=== PATIENT | male | born 1990 | race American Indian/Alaskan Native ===

== ENCOUNTER 2017-01-31 06:47 | Day surgery (SDC) | payer MEDICAID ==
[2017-01-31 07:24] LABS: INR 1.06 (0.93-1.08); PARTIAL THROMBOPLASTIN TIME 29.1 Seconds (23.7-30.8); PROTHROMBIN TIME 11.4 Seconds (9.9-11.8)
[2017-01-31 07:44] VITALS: BMI 30.3
[2017-01-31 07:51] VITALS: RESP 18
[2017-01-31] MEDS ORDERED: Bacitracin Ointment 30 GM TUBE ONE (08:42)
[2017-01-31] MEDS ORDERED: Absorbable Gelatin Sponge Size 100 ONE (08:42)
[2017-01-31] MEDS ORDERED: Bupivacaine 0.5% Inj(30mL) ONE (08:42)
[2017-01-31] MEDS ORDERED: Propofol 10 mg/ml Inj (20 ML) ONE (08:44)
[2017-01-31] MEDS ORDERED: Midazolam 2 MG/2 ML VIAL ONE (08:44)
[2017-01-31] MEDS ORDERED: Rocuronium 10 mg/ml (5 ml) ONE (08:48)
[2017-01-31] MEDS ORDERED: metroNIDAZOLE IV 500 mg/100 ml 500 MG/100 ML BAG ONE (09:14)
[2017-01-31] MEDS ORDERED: Neostigmine Methylsulfate 3mg/3ml Syringe IV ONE (09:32)
[2017-01-31] MEDS ORDERED: Lactated Ringer's 1,000 ML IV SCH (10:26)
[2017-01-31] MEDS ORDERED: HYDROmorphone 0.5 mg/0.5 ml ISec IVP PRN (10:26)
--- NOTE | 2017-01-31 10:28 | PCM.SURG1 ---
Surgeon's Initial Post Op Note - Surgeon's Notes Surgeon: Dr. Duran Counseling Services Director: Dr. Bess Type of Anesthesia: General Endo, Local Pre-Operative Diagnosis: anal fissure Operative Findings: see op report Post-Operative Diagnosis: anal fissure x2, anal lesion Operation Performed: exam under anesthesia w/ posterior and anterior anal fissurectomy w/ excision of posterior anal lesion and sphincterotomy Specimen/Specimens Removed: anterior and posterior anal fissure/tissue Estimated Blood Loss: EBL {In ML}: 25 Blood Products Given: N/A Drains Used: No Drains Post-Op Condition: Good Date of Surgery/Procedure: 01/31/17 Time of Surgery/Procedure: 10:28
[2017-01-31] MEDS ORDERED: HYDROmorphone 0.5 mg/0.5 ml ISec ONE (10:50)
[2017-01-31] MEDS ORDERED: HYDROmorphone 0.5 mg/0.5 ml ISec IVP ONE (10:51)
[2017-01-31 11:57] VITALS: TEMP 98.1; O2SAT 99
[2017-01-31 12:13] VITALS: BP 123/74; PULSE 70
--- NOTE | 2017-02-01 19:09 | OP ---
PROCEDURE DATE: 01/31/2017 SURGEON: Michael Duran MD. INTERNAL MEDICINE NURSE: Alison Combs DO, PGY-2. INSPECTOR AIDE: Dr. Urena. ANESTHESIA: General endotracheal-marcaine 0.5-22 mL-pararectal block. PREOPERATIVE DIAGNOSES 1. 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 2. Asthma. 3. Bipolar disorder. POSTOPERATIVE DIAGNOSES: 1. 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 2. Asthma. 3. Bipolar disorder. PATHOLOGY: Pending. PROCEDURE: 1. On 01/31/2017 is bilateral anal fissurectomy with primary closure. 2. Excision of the posterior anal nodule, 1 cm. 3. Internal anal sphincterotomy. 4. Pararectal block by surgeon. 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 He came to this surgeon 2 years ago with failure of his treatments, seeking an alternative to his problems and the papilloma lesions were found intrarectally and were removed at that time only to have the patient develop anal fissures and bleeding with defecation associated pain, associated with one of the two fissures in the midline posteriorly is a granulomatous-looking nodule that could be a papilloma or condyloma and will be removed and the examination intrarectally will be re-performed at this point to confirm if there is any further pathology. The basic understanding for the recurrence of this point of the anal fissure problem is the patient's failure to stay on a *------* agent (kristalose-lactulose powder), which was supplied by doctor and not taken by the patient. OPERATIVE NOTE: The patient is brought from the holding area to the operating room. He undergoes time-out procedure and was identified by his wrist band. He was placed on the table in a prone jackknife position following an endotracheal intubation and the airway was secured by the anesthesiologist completely and the patient then placed in prone jackknife with buttocks secured with 6-inch white adhesive tape and the area inspected at this point. The two lesions are seen in the midline anteriorly and posteriorly with the 1 cm granulomatous lesion in the posterior section and a question of significant sentinel pile or granuloma in the anterior fissure. The area was prepped with Betadine, aseptically draped, and the Mateusz retractor was inserted into rectum and the anterior fissure was widely excised including old margins and to the depth of the dissection required. This was submitted separately in formalin for pathologic evaluation and hemostasis was contained with electrocoagulating cautery until hemostasis was completely confirmed. The fissure was now closed in two layers with 3-0 chromic catgut interrupted suture and the Mateusz retractor now removed and attention drawn to the posterior fissure and the Mateusz retractor was re-inserted and this was examined and found to be so much smaller, but containing the granulomatous nodule. This area was excised just like the other one including wide clear margins, including depth and submitted in formalin pertinent section analysis. Hemostasis was now contained with electrocoagulating cautery current and the internal sphincter was visualized at this point, dissected free and a 1 cm portion of the internal sphincter was and transected using electrocoagulating current. The internal sphincter was now palpated by the index finger and demonstrated significant laxity at this point and the wound was re-confirmed for hemostasis and closed with interrupted 2-0 chromic catgut suture. A large Gelfoam plug was inserted after flattening the Gelfoam and covering with antibacterial ointment into the anus and left in place with the dry dressing over the same. A pararectal block had been performed at the end of the procedure by the operating surgeon utilizing a 0.5% bupivacaine plain and following this, dry dressings were placed over the anus and secured with elastic underwear. The patient was then rotator back to the operating gurney, awakened, extubated and transported from there to the recovery room in satisfactory condition. Sponge, instrument and suture count were verified as correct at the end of the procedure. Estimated blood loss during this procedure was less than 20 mL of blood. This dictation will be electronically signed without being read. The instructor adjunct surgical technician was present throughout the procedure from the beginning to end and was essential in the exposure, the dissection and the surgical correction of recurrent fissures and skin lesion. Michael Duran MD
== END 2017-01-31 12:30 | disposition home or self-care (01) ==
LOC: SDS 06:47
PROVIDERS: ATTEND Surgery
DX: K60.2 Anal fissure, unspecified (principal); J45.909 Unspecified asthma, uncomplicated; Z91.013 Allergy to seafood; F31.9 Bipolar disorder, unspecified
CPT/HCPCS: 36415; 46200; 46922; 64450; 85610; 85730; 88305; J0690; J1170; J2001; J2250; J2704; J2710; J3010; J7120